=== PATIENT | male | born 1995 | race Two or more races ===

== ENCOUNTER 2017-03-09 00:44 | Emergency (ER) | payer SELFPAY ==
[2017-03-09 01:00] VITALS: BP 170/84; PULSE 106; RESP 18; TEMP 98.4; O2SAT 97
--- NOTE | 2017-03-09 01:06 | ED PDOC ---
HPI: Psych/Substance Abuse Time Seen by Provider: 03/09/17 01:04 Chief Complaint (Nursing): Alcohol Ingestion Chief Complaint (Provider): ALCOHOL INGESTION History Per: Patient (22 Y/O MALE HERE FOR ALCOHOL INTOXICATION. EMS STATES THAT PATIENT FLAGGED THEM DOWN THEY WERE BRINGING PATIENT TO ED. PATIENT STATES HE WAS TRYING TO GET A RIDE TO [facility].) Past Medical History Reviewed: Historical Data, Nursing Documentation, Vital Signs Vital Signs: Last Vital Signs Temp 98.4 F 03/09/17 00:59 Pulse 106 H 03/09/17 00:59 Resp 18 03/09/17 00:59 BP 170/84 H 03/09/17 00:59 Pulse Ox 97 03/09/17 00:59 - Family History Family History: States: No Known Family Hx - Allergies Allergies/Adverse Reactions: Allergies Allergy/AdvReac Type Severity Reaction Status Date / Time No Known Allergies Allergy Verified 03/09/17 00:59 Review of Systems ROS Statement: Except As Marked, All Systems Reviewed And Found Negative Physical Exam - Reviewed Nursing Documentation Reviewed: Yes Vital Signs Reviewed: Yes - Physical Exam Appears: Positive for: Well, Non-toxic, No Acute Distress Head Exam: Positive for: ATRAUMATIC, NORMAL INSPECTION, NORMOCEPHALIC Skin: Positive for: Normal Color, Warm, DRY Eye Exam: Positive for: EOMI, Normal appearance, PERRL ENT: Positive for: Normal ENT Inspection Neck: Positive for: Normal, Painless ROM Cardiovascular/Chest: Positive for: Regular Rate, Rhythm Respiratory: Positive for: CNT, Normal Breath Sounds Gastrointestinal/Abdominal: Positive for: Normal Exam, Bowel Sounds, Soft Back: Positive for: Normal Inspection Extremity: Positive for: Normal ROM Neurologic/Psych: Positive for: Alert, Oriented - ECG O2 Sat by Pulse Oximetry: 97 - Progress ED Course And Treament: Gait noted steady in ED. Disposition - Clinical Impression Clinical Impression: Alcohol ingestion - Patient ED Disposition Is Patient to be Admitted: No - Disposition Disposition: Routine/Home Disposition Time: 05:48 Condition: FAIR Instructions: Alcohol Intoxication (DC)
== END 2017-03-09 06:04 | disposition home or self-care (01) ==
LOC: H.ER 00:44
DX: F10.129 Alcohol abuse with intoxication, unspecified (principal)
CPT/HCPCS: 82948; 99282; G0480